=== PATIENT | male | born 1955 | race Hispanic/Latino ===

== ENCOUNTER → 2019-07-02 | Outpatient (CLI) | payer BC ==
[~2019-07-02] MED LIST: ASPI-1181 PO; CETI10TA57 PO; DICL100G31 TP; DILT180C63 PO; FURO40TA7 PO; OMEP40CA13 PO; TAMS-1 PO; VALS320T16 PO
== END | disposition home or self-care (01) ==
LOC: SHCH 07:59
PROVIDERS: ATTEND Internal Medicine Cardiovascular Disease
DX: I25.5 Ischemic cardiomyopathy (principal); R94.39 Abnormal result of other cardiovascular function study; I50.40 Unspecified combined systolic (congestive) and diastolic (congestive) heart failure
CPT/HCPCS: 78481; A9512

== ENCOUNTER 2022-01-06 22:09 | Inpatient (IN) | payer BC, MEDICARE ==
[~2022-01-06] VITALS: Ht 177.8 cm; Wt 149.7 kg
[~2022-01-06 22:09] MED LIST changes: -ASPI-1181 PO; +ASPI-1443 PO; -OMEP40CA13 PO; +OMEP40CA21 PO
[2022-01-06] MEDS ORDERED: ASPIRIN 81MG CHEW TAB PO ONE (22:30)
[2022-01-06] MEDS ORDERED: NITROGLYCERIN 1GM OINT 1 INCH/1GM TD ONE (22:30)
[2022-01-06 23:08] LABS: CREATININE 0.9 mg/dL (0.5-1.5); INR 0.93 (0.85-1.15); POTASSIUM 4.9 mmol/L (3.5-5.1); PROTHROMBIN TIME 9.8 SEC (9.6-11.6)
[2022-01-06 23:10] LABS: PARTIAL THROMBOPLASTIN TIME 23.2 SEC (26.3-35.5)
[2022-01-06 23:13] LABS: ALBUMIN 3.7 g/dL (3.5-5.0); BASOPHILS % (AUTO) 0.2 % (0.0-5.0); BILIRUBIN,TOTAL 0.8 mg/dL (0.2-1.0); LYMPHOCYTES % (AUTO) 10.9 % (21.0-51.0); MEAN CORPUSCULAR HEMOGLOBIN 30.7 pg (27.0-33.0); MEAN CORPUSCULAR HGB CONC 33.8 g/dL (32.0-36.0); MONOCYTES % (AUTO) 4.5 % (3.0-13.0); NEUTROPHILS % (AUTO) 82.2 % (40.0-77.0); PLATELET COUNT (AUTO) 91 K/uL (130-400); RED CELL DISTRIBUTION WIDTH 12.8 % (11.0-15.5); TOTAL PROTEIN, SERUM 7.7 g/dL (6.0-8.3)
[2022-01-06 23:18] LABS: HEMATOCRIT 61.9 % (42-54)
[2022-01-06] MEDS ORDERED: IOHEXOL 350 MG/ML 100ML INFUS..BTL IV ONE (23:52)
[2022-01-07] MEDS ORDERED: 0.9%NACL 1000ML 1,000 ML IV ONE
[2022-01-07] MEDS ORDERED: ACETAMINOPHEN 325 MG TAB PO PRN (01:00)
[2022-01-07] MEDS ORDERED: IPRATROPIUM/ALBUTEROL SULFATE 3 ML SOLUTION IH PRN (01:00)
[2022-01-07] MEDS ORDERED: LACTATED RINGERS 1000ML 1,000 ML IV SCH (01:00)
[2022-01-07] MEDS ORDERED: DiphenhydrAMINE HCL 50 MG/ML VIAL IV PRN (01:00)
[2022-01-07] MEDS ORDERED: ONDANSETRON 4MG INJ IV PRN (01:00)
[2022-01-07] MEDS ORDERED: HYDRALAZINE 20MG/ML VIAL IV PRN (01:00)
[2022-01-07] MEDS ORDERED: ENOXAPARIN SODIUM 1 MG/KG SQ SCH (01:00)
[2022-01-07 01:07] LABS: APPEARANCE,URINE Clear (CLEAR); BILIRUBIN,URINE Negative (NEGATIVE); COLOR,URINE Yellow (YELLOW); GLUCOSE, URINE (UA) Negative (NEGATIVE); KETONES,URINE Trace mg/dL (NEGATIVE); LEUKOCYTE ESTERASE ,URINE Negative (NEGATIVE); NITRATE,URINE Negative (NEGATIVE); OCCULT BLOOD,URINE Negative (NEGATIVE); PROTEIN,URINE Trace mg/dL (NEGATIVE)
[2022-01-07 01:24] LABS: BACTERIA,URINE None Seen /HPF (None Seen); RBC,URINE 0-1 /HPF (0-1); SQUAMOUS EPITHELIAL CELL,UR Few /HPF (0-2); WBC,URINE 0-1 /HPF (0-1)
[2022-01-07] MEDS ORDERED: ENOXAPARIN SODIUM 80 MG/0.8 ML SQ ONE (01:30)
[2022-01-07 01:35] LABS: BILIRUBIN,DIRECT 0.1 mg/dL (0.0-0.3); CRP QUANTITATIVE 1.4 mg/L (0.00-9.0)
[2022-01-07 02:18] LABS: ERYTHROCYTE SEDIMENTATION RATE 15 MM/HR (0-20)
[2022-01-07 03:00] LABS: % IRON SATURATION 20.9 % (30-44)
[2022-01-07 03:30] VITALS: BP 146/71
[2022-01-07 06:16] LABS: EOSINOPHILS % (AUTO) 2.1 % (0.0-8.0); HEMATOCRIT 42.5 % (42-54); LYMPHOCYTES % (AUTO) 9.7 % (21.0-51.0); MEAN CORPUSCULAR HEMOGLOBIN 30.6 pg (27.0-33.0); MEAN CORPUSCULAR HGB CONC 32.9 g/dL (32.0-36.0); MEAN CORPUSCULAR VOLUME 92.8 fL (79-99); MONOCYTES % (AUTO) 7.4 % (3.0-13.0); NEUTROPHILS % (AUTO) 80.5 % (40.0-77.0); PLATELET COUNT (AUTO) 169 K/uL (130-400); RED BLOOD CELL COUNT(AUTO) 4.58 MIL/uL (4.50-6.20); RED CELL DISTRIBUTION WIDTH 12.7 % (11.0-15.5); WHITE BLOOD COUNT (AUTO) 6.3 K/uL (4.8-10.8)
[2022-01-07 07:30] VITALS: BP 97/38
[2022-01-07] MEDS: FAMOTIDINE 20MG VIAL IV SCH ×2 (08:23→21:22)
[2022-01-07] MEDS ORDERED: ERGO500093 PO (09:44)
[2022-01-07] MEDS ORDERED: METO25TA6 PO (09:44)
[2022-01-07] MEDS ORDERED: OMEP40CA21 PO (09:44)
[2022-01-07] MEDS ORDERED: TAMS-1 PO (09:44)
[2022-01-07] MEDS ORDERED: EPLE25TA PO (09:44)
[2022-01-07] MEDS ORDERED: LISI2.5T13 PO (09:44)
[2022-01-07] MEDS ORDERED: ATOR40TA69 PO (09:44)
[2022-01-07] MEDS ORDERED: UMEC1DIS IH (09:45)
[2022-01-07] MEDS: PANTOPRAZOLE 40 MG TAB DR PO SCH (10:50)
[2022-01-07] MEDS: ***HM*** (Umeclidinium Brm/Vilanterol Tr (Anoro Ellipta 62.5-25 Mcg IH SCH (11:22)
[2022-01-07 11:50] VITALS: BP 110/44
[2022-01-07 20:17] VITALS: BP 122/61
[2022-01-07] MEDS: TAMSULOSIN HCL 0.4 MG CAP.ER.24H PO SCH (21:21)
[2022-01-07] MEDS: ATORVASTATIN 40 MG TABLET PO SCH (21:22)
[2022-01-07] MEDS: ASPIRIN 81 MG EC TAB PO SCH (21:22)
[2022-01-07 23:40] VITALS: BP 130/38
[2022-01-08 03:41] VITALS: BP 116/49
[2022-01-08 06:54] LABS: BASOPHILS % (AUTO) 0.3 % (0.0-5.0); EOSINOPHILS % (AUTO) 2.8 % (0.0-8.0); HEMATOCRIT 37.9 % (42-54); LYMPHOCYTES % (AUTO) 28.4 % (21.0-51.0); MEAN CORPUSCULAR HEMOGLOBIN 29.8 pg (27.0-33.0); MEAN CORPUSCULAR HGB CONC 32.2 g/dL (32.0-36.0); MEAN CORPUSCULAR VOLUME 92.7 fL (79-99); MONOCYTES % (AUTO) 15.3 % (3.0-13.0); NEUTROPHILS % (AUTO) 52.9 % (40.0-77.0); PLATELET COUNT (AUTO) 141 K/uL (130-400); RED BLOOD CELL COUNT(AUTO) 4.09 MIL/uL (4.50-6.20); RED CELL DISTRIBUTION WIDTH 12.6 % (11.0-15.5); WHITE BLOOD COUNT (AUTO) 3.6 K/uL (4.8-10.8)
[2022-01-08 07:13] LABS: POTASSIUM 4.3 mmol/L (3.5-5.1)
[2022-01-08 08:00] VITALS: BP 130/82
[2022-01-08] MEDS: ***HM*** (Umeclidinium Brm/Vilanterol Tr (Anoro Ellipta 62.5-25 Mcg IH SCH (09:00)
[2022-01-08] MEDS ORDERED: ASPIRIN 81MG CHEW TAB PO SCH (09:00)
[2022-01-08] MEDS: METOPROLOL TARTRATE 25 MG TAB PO SCH (09:17)
[2022-01-08] MEDS: FAMOTIDINE 20MG VIAL IV SCH ×2 (09:18→21:37)
[2022-01-08] MEDS: PANTOPRAZOLE 40 MG TAB DR PO SCH (09:18)
[2022-01-08] MEDS: LISINOPRIL 2.5 MG TABLET PO SCH (09:18)
[2022-01-08] MEDS: FUROSEMIDE 40 MG TABLET PO SCH (09:18)
[2022-01-08] MEDS: EPLERENONE 25 MG PO SCH (09:22)
[2022-01-08 11:45] LABS: BASOPHILS % (AUTO) 0.3 % (0.0-5.0); EOSINOPHILS % (AUTO) 3.1 % (0.0-8.0); HEMATOCRIT 39.7 % (42-54); LYMPHOCYTES % (AUTO) 28.6 % (21.0-51.0); MEAN CORPUSCULAR HEMOGLOBIN 30.7 pg (27.0-33.0); MEAN CORPUSCULAR VOLUME 90.2 fL (79-99); MONOCYTES % (AUTO) 17.1 % (3.0-13.0); NEUTROPHILS % (AUTO) 50.6 % (40.0-77.0); PLATELET COUNT (AUTO) 159 K/uL (130-400); RED CELL DISTRIBUTION WIDTH 12.6 % (11.0-15.5); WHITE BLOOD COUNT (AUTO) 3.2 K/uL (4.8-10.8)
[2022-01-08 12:00] VITALS: BP 122/82
[2022-01-08 16:00] VITALS: BP 139/58
[2022-01-08 20:29] VITALS: BP 153/70
[2022-01-08] MEDS: ASPIRIN 81 MG EC TAB PO SCH (21:36)
[2022-01-08] MEDS: ATORVASTATIN 40 MG TABLET PO SCH (21:36)
[2022-01-08] MEDS: TAMSULOSIN HCL 0.4 MG CAP.ER.24H PO SCH (21:37)
[2022-01-08] MEDS: HEPARIN 5,000 UNIT VIAL SQ SCH (23:20)
[2022-01-08 23:28] VITALS: BP 139/71
[2022-01-09 03:45] VITALS: BP 128/64
[2022-01-09 06:24] LABS: BASOPHILS % (AUTO) 0.5 % (0.0-5.0); EOSINOPHILS % (AUTO) 4.1 % (0.0-8.0); HEMATOCRIT 40.3 % (42-54); LYMPHOCYTES % (AUTO) 34.6 % (21.0-51.0); MEAN CORPUSCULAR HEMOGLOBIN 29.8 pg (27.0-33.0); MEAN CORPUSCULAR VOLUME 90.4 fL (79-99); NEUTROPHILS % (AUTO) 45.6 % (40.0-77.0); PLATELET COUNT (AUTO) 166 K/uL (130-400); RED BLOOD CELL COUNT(AUTO) 4.46 MIL/uL (4.50-6.20); RED CELL DISTRIBUTION WIDTH 12.4 % (11.0-15.5); WHITE BLOOD COUNT (AUTO) 4.1 K/uL (4.8-10.8)
[2022-01-09 06:37] LABS: CREATININE 0.9 mg/dL (0.5-1.5)
[2022-01-09 08:00] VITALS: BP 120/56
[2022-01-09] MEDS: LISINOPRIL 2.5 MG TABLET PO SCH (08:40)
[2022-01-09] MEDS: PANTOPRAZOLE 40 MG TAB DR PO SCH (08:40)
[2022-01-09] MEDS: METOPROLOL TARTRATE 25 MG TAB PO SCH (08:40)
[2022-01-09] MEDS: FUROSEMIDE 40 MG TABLET PO SCH (08:40)
[2022-01-09] MEDS: FAMOTIDINE 20MG VIAL IV SCH (08:40)
[2022-01-09] MEDS: HEPARIN 5,000 UNIT VIAL SQ SCH (08:41)
[2022-01-09] MEDS: EPLERENONE 25 MG PO SCH (08:42)
[2022-01-09] MEDS: ***HM*** (Umeclidinium Brm/Vilanterol Tr (Anoro Ellipta 62.5-25 Mcg IH SCH (08:42)
[2022-01-09 13:39] VITALS: BP 128/75
== END 2022-01-09 16:34 | disposition home or self-care (01) | DRG 313 ==
LOC: EDH 22:09 → EDHIP 01-07 00:50 → 4CH 01-07 03:19
PROVIDERS: ADMIT Internal Medicine; ATTEND Internal Medicine
DX: R07.89 Other chest pain (principal); I11.0 Hypertensive heart disease with heart failure; E78.5 Hyperlipidemia, unspecified; N40.0 Benign prostatic hyperplasia without lower urinary tract symptoms; D69.6 Thrombocytopenia, unspecified; G47.33 Obstructive sleep apnea (adult) (pediatric); K21.9 Gastro-esophageal reflux disease without esophagitis; I50.9 Heart failure, unspecified; I25.10 Atherosclerotic heart disease of native coronary artery without angina pectoris; Z95.1 Presence of aortocoronary bypass graft; Z83.3 Family history of diabetes mellitus; Z82.49 Family history of ischemic heart disease and other diseases of the circulatory system; Z82.3 Family history of stroke
CPT/HCPCS: 36415; 71045; 71250; 78582; 80048; 80053; 81001; 82248; 82550; 82668; 82728; 83540; 83550; 83880; 84443; 84484; 85025; 85378; 85610; 85651; 85730; 86140; 93005; 93306; 93970; 94660; 94664; A9540; A9558; G0378; J1644; J1650; J2405; J3490; J7120; Q9967

== ENCOUNTER → 2022-04-29 | Outpatient (CLI) | payer BC, MEDICARE ==
[~2022-04-29] MED LIST changes: +ATOR40TA69 PO; -DICL100G31 TP; -DILT180C63 PO; +EPLE25TA PO; +ERGO500093 PO; +LISI2.5T13 PO; +METO25TA6 PO; +UMEC1DIS IH; -VALS320T16 PO
[2022-04-29 12:42] LABS: BASOPHILS % (AUTO) 0.3 % (0.0-5.0); EOSINOPHILS % (AUTO) 3.3 % (0.0-8.0); HEMATOCRIT 41.9 % (42-54); LYMPHOCYTES % (AUTO) 29.1 % (21.0-51.0); MEAN CORPUSCULAR HEMOGLOBIN 30.7 pg (27.0-33.0); MEAN CORPUSCULAR HGB CONC 33.2 g/dL (32.0-36.0); MEAN CORPUSCULAR VOLUME 92.5 fL (79-99); MONOCYTES % (AUTO) 10.5 % (3.0-13.0); NEUTROPHILS % (AUTO) 56.5 % (40.0-77.0); PLATELET COUNT (AUTO) 214 K/uL (130-400); RED BLOOD CELL COUNT(AUTO) 4.53 MIL/uL (4.50-6.20); RED CELL DISTRIBUTION WIDTH 13.2 % (11.0-15.5); WHITE BLOOD COUNT (AUTO) 5.7 K/uL (4.8-10.8)
[2022-04-29 13:03] LABS: ALBUMIN 3.3 g/dL (3.5-5.0); CREATININE 1.1 mg/dL (0.5-1.5); MAGNESIUM 1.7 mg/dL (1.80-2.40); POTASSIUM 4.3 mmol/L (3.5-5.1); TOTAL PROTEIN, SERUM 7.3 g/dL (6.0-8.3)
[2022-04-29 13:23] LABS: B-TYPE NATRIURETIC PEPTIDE 107 pg/mL (0-100)
== END | disposition home or self-care (01) ==
LOC: LAB 08:19
PROVIDERS: ATTEND Internal Medicine Cardiovascular Disease
DX: I47.2 Ventricular tachycardia (principal); I50.22 Chronic systolic (congestive) heart failure; R06.00 Dyspnea, unspecified
CPT/HCPCS: 36415; 80053; 80061; 83735; 83880; 85025

== ENCOUNTER → 2022-11-11 | Outpatient (CLI) | payer MEDICARE ==
[2022-11-11 16:23] LABS: BASOPHILS % (AUTO) 0.2 % (0.0-5.0); EOSINOPHILS % (AUTO) 2.8 % (0.0-8.0); HEMATOCRIT 40.1 % (42-54); LYMPHOCYTES % (AUTO) 28.3 % (21.0-51.0); MEAN CORPUSCULAR HGB CONC 32.9 g/dL (32.0-36.0); MEAN CORPUSCULAR VOLUME 94.1 fL (79-99); MONOCYTES % (AUTO) 10.7 % (3.0-13.0); NEUTROPHILS % (AUTO) 57.8 % (40.0-77.0); PLATELET COUNT (AUTO) 184 K/uL (130-400); RED BLOOD CELL COUNT(AUTO) 4.26 MIL/uL (4.50-6.20); RED CELL DISTRIBUTION WIDTH 13.6 % (11.0-15.5); WHITE BLOOD COUNT (AUTO) 5.3 K/uL (4.8-10.8)
[2022-11-11 17:15] LABS: ALBUMIN 3.3 g/dL (3.5-5.0); POTASSIUM 4.3 mmol/L (3.5-5.1); TOTAL PROTEIN, SERUM 7.2 g/dL (6.0-8.3)
== END | disposition home or self-care (01) ==
LOC: LAB 11:00
PROVIDERS: ATTEND Internal Medicine Cardiovascular Disease
DX: I50.22 Chronic systolic (congestive) heart failure (principal)
CPT/HCPCS: 36415; 80053; 80061; 85025

== ENCOUNTER → 2023-04-22 | Outpatient (CLI) | payer MEDICARE ==
[2023-04-22 12:13] LABS: BASOPHILS # (AUTO) 0.02 K/uL (0.00-0.20); BASOPHILS % (AUTO) 0.4 % (0.0-5.0); EOSINOPHILS # (AUTO) 0.13 K/uL (0.00-0.70); EOSINOPHILS % (AUTO) 2.3 % (0.0-8.0); HEMATOCRIT 41.3 % (42-54); IMMATURE GRANULOCYTE ABSOLUTE 0.01 K/uL (0-1); LYMPHOCYTES # (AUTO) 1.4 K/uL (1.0-4.8); LYMPHOCYTES % (AUTO) 25.1 % (21.0-51.0); MEAN CORPUSCULAR HEMOGLOBIN 30.9 pg (27.0-33.0); MEAN CORPUSCULAR HGB CONC 33.7 g/dL (32.0-36.0); MEAN CORPUSCULAR VOLUME 91.8 fL (79-99); MONOCYTES # (AUTO) 0.5 K/uL (0.1-1.0); MONOCYTES % (AUTO) 8.9 % (3.0-13.0); NEUTROPHILS # (AUTO) 3.6 K/uL (1.8-7.7); NEUTROPHILS % (AUTO) 63.1 % (40.0-77.0); PLATELET COUNT (AUTO) 196 K/uL (130-400); RED CELL DISTRIBUTION WIDTH 12.7 % (11.0-15.5); WHITE BLOOD COUNT (AUTO) 5.6 K/uL (4.8-10.8)
[2023-04-22 12:32] LABS: ALBUMIN 3.4 g/dL (3.5-5.0); BILIRUBIN,TOTAL 0.7 mg/dL (0.2-1.0); CREATININE 0.9 mg/dL (0.5-1.5); TOTAL PROTEIN, SERUM 7.6 g/dL (6.0-8.3)
== END | disposition home or self-care (01) ==
LOC: LAB 10:40
PROVIDERS: ATTEND Internal Medicine Cardiovascular Disease
DX: I25.810 Atherosclerosis of coronary artery bypass graft(s) without angina pectoris (principal); I10 Essential (primary) hypertension
CPT/HCPCS: 36415; 80053; 80061; 85025

== ENCOUNTER → 2023-05-26 | Outpatient (CLI) | payer MEDICARE | END | disposition home or self-care (01) | LOC: RAH 08:11 | PROVIDERS: ATTEND Urology | DX: N28.1 Cyst of kidney, acquired (principal); R31.29 Other microscopic hematuria | CPT/HCPCS: 76770 ==

== ENCOUNTER → 2024-01-27 | Outpatient (CLI) | payer MEDICARE ==
[2024-01-27 12:34] LABS: POTASSIUM 3.7 mmol/L (3.5-5.1)
== END | disposition home or self-care (01) ==
LOC: LAB 09:49
PROVIDERS: ATTEND Internal Medicine Cardiovascular Disease
DX: I50.22 Chronic systolic (congestive) heart failure (principal)
CPT/HCPCS: 36415; 80048

== ENCOUNTER → 2024-02-10 | Outpatient (CLI) | payer MEDICARE ==
[2024-02-10 12:25] LABS: CREATININE 0.9 mg/dL (0.5-1.3)
== END | disposition home or self-care (01) ==
LOC: LAB 10:44
PROVIDERS: ATTEND Internal Medicine Cardiovascular Disease
DX: I25.2 Old myocardial infarction (principal); I50.22 Chronic systolic (congestive) heart failure; G47.33 Obstructive sleep apnea (adult) (pediatric)
CPT/HCPCS: 36415; 80048

== ENCOUNTER 2024-02-20 11:49 | Emergency (ER) | payer MEDICARE ==
[~2024-02-20] VITALS: Ht 177.8 cm; Wt 148.8 kg
[2024-02-20 12:32] LABS: BASOPHILS # (AUTO) 0.01 K/uL (0.00-0.20); BASOPHILS % (AUTO) 0.1 % (0.0-5.0); EOSINOPHILS # (AUTO) 0.08 K/uL (0.00-0.70); EOSINOPHILS % (AUTO) 1.2 % (0.0-8.0); HEMATOCRIT 39.2 % (42-54); IMMATURE GRANULOCYTE ABSOLUTE 0.01 K/uL (0-1); LYMPHOCYTES # (AUTO) 1.2 K/uL (1.0-4.8); LYMPHOCYTES % (AUTO) 18.2 % (21.0-51.0); MEAN CORPUSCULAR HEMOGLOBIN 31.1 pg (27.0-33.0); MEAN CORPUSCULAR HGB CONC 33.7 g/dL (32.0-36.0); MEAN CORPUSCULAR VOLUME 92.5 fL (79-99); MONOCYTES # (AUTO) 0.5 K/uL (0.1-1.0); NEUTROPHILS % (AUTO) 73.4 % (40.0-77.0); PLATELET COUNT (AUTO) 183 K/uL (130-400); RED BLOOD CELL COUNT(AUTO) 4.24 MIL/uL (4.50-6.20); RED CELL DISTRIBUTION WIDTH 12.6 % (11.0-15.5); WHITE BLOOD COUNT (AUTO) 6.8 K/uL (4.8-10.8)
[2024-02-20 12:51] LABS: CREATININE 1.2 mg/dL (0.5-1.3)
[2024-02-20 12:55] LABS: ALBUMIN 3.3 g/dL (3.5-5.0); BILIRUBIN,DIRECT 0.2 mg/dL (0.0-0.3); BILIRUBIN,TOTAL 0.6 mg/dL (0.2-1.0); TOTAL PROTEIN, SERUM 7.2 g/dL (6.0-8.3)
[2024-02-20] MEDS: MORPHINE 4 MG SYG IVP ONE (13:51)
[2024-02-20] MEDS: ONDANSETRON 4MG INJ IVP ONE (13:51)
[2024-02-20] MEDS: KETOROLAC 15MG/ML VIAL (15MG/ML) IV ONE (13:52)
[2024-02-20 14:27] LABS: APPEARANCE,URINE CLEAR (CLEAR); BILIRUBIN,URINE NEGATIVE (NEGATIVE); COLOR,URINE LIGHT-YELLOW (YELLOW); GLUCOSE, URINE (UA) >=1000 mg/dL (NEGATIVE); KETONES,URINE NEGATIVE (NEGATIVE); LEUKOCYTE ESTERASE ,URINE NEGATIVE Leu/uL (NEGATIVE); NITRATE,URINE NEGATIVE (NEGATIVE); OCCULT BLOOD,URINE MODERATE (NEGATIVE); PROTEIN,URINE NEGATIVE (NEGATIVE); UROBILINOGEN,URINE 0.2 mg/dL (0.2-1.0)
[2024-02-20 14:32] LABS: ADD UA MICROSCOPIC YES
[2024-02-20 14:35] LABS: BACTERIA,URINE RARE /HPF (None Seen); MUCUS,URINE RARE LPF (None Seen); SQUAMOUS EPITHELIAL CELL,UR RARE /HPF (0-2)
[2024-02-20 16:20] VITALS: BP 124/72; PULSE 80; RESP 20; O2SAT 96
[2024-02-20] MEDS ORDERED: NAPR-1196 PO (16:20)
== END 2024-02-20 16:31 | disposition home or self-care (01) ==
LOC: EDH 11:49
DX: R10.32 Left lower quadrant pain (principal); R31.9 Hematuria, unspecified; I10 Essential (primary) hypertension; Z79.82 Long term (current) use of aspirin; Z79.899 Other long term (current) drug therapy; Z95.1 Presence of aortocoronary bypass graft
CPT/HCPCS: 99285; 74176; 96374; 96375; 80076; 84484; 80048; 83690; 85025; 81001; 36415; 93005; J2405; J2270; J1885

== ENCOUNTER → 2024-09-14 | Outpatient (CLI) | payer MEDICARE ==
[~2024-09-14] MED LIST changes: +NAPR-1196 PO
[2024-09-14 12:22] LABS: ALBUMIN 3.3 g/dL (3.5-5.0); BILIRUBIN,TOTAL 0.6 mg/dL (0.2-1.0); POTASSIUM 4.5 mmol/L (3.5-5.1); TOTAL PROTEIN, SERUM 7.7 g/dL (6.0-8.3)
== END | disposition home or self-care (01) ==
LOC: LAB 09:45
PROVIDERS: ATTEND Internal Medicine Cardiovascular Disease
DX: I11.0 Hypertensive heart disease with heart failure (principal); I50.32 Chronic diastolic (congestive) heart failure; I25.810 Atherosclerosis of coronary artery bypass graft(s) without angina pectoris
CPT/HCPCS: 36415; 80053; 80061

== ENCOUNTER → 2025-04-21 | Outpatient (CLI) | payer MEDICARE ==
[~2025-04-21] MED LIST changes: -TAMS-1 PO; +TAMS-55 PO
--- NOTE | 2025-04-22 06:52 | HMCIMG ---
EXAM: CR Lumbar Spine, 4 views. CLINICAL HISTORY: Spinal stenosis. COMPARISON: None provided. FINDINGS: Lumbar alignment is within normal limits. Multilevel anterior osteophytes. Moderate reduction in L4-L5 and L5-S1 intervertebral disc heights. Mild reduction in L2-L3 and L3-L4 intervertebral disc heights. Normal vertebral body heights. No acute fracture. Soft tissues are within normal limits. IMPRESSION: 1. No acute bony changes. 2. Moderate lower lumbar spondylosis. /[place]
== END | disposition home or self-care (01) ==
LOC: RAH 13:35
PROVIDERS: ATTEND Physical Medicine & Rehabilitation
DX: M47.816 Spondylosis without myelopathy or radiculopathy, lumbar region (principal); M48.062 Spinal stenosis, lumbar region with neurogenic claudication; M54.50 Low back pain, unspecified; R20.2 Paresthesia of skin
CPT/HCPCS: 72114

== ENCOUNTER → 2025-04-26 | Outpatient (CLI) | payer MEDICARE ==
--- NOTE | 2025-04-27 11:48 | HMCIMG ---
EXAM: MR Lumbar Spine Without Intravenous Contrast. CLINICAL HISTORY: Spinal canal stenosis. Lumbar region pain with neurogenic claudication. TECHNIQUE: Magnetic resonance images of the lumbar spine in multiple planes. CONTRAST: None. COMPARISON: Prior lumbar spine radiograph dated for April 2025. FINDINGS: For this examination, spinal levels were labeled assuming five non-rib bearing, lumbar-type vertebrae with the inferior labeled L5. No acute fracture. Normal lordotic curvature. Normal vertebral body height and marrow signal intensity. Multilevel disc desiccation and degenerative reduction in disc space from L1-L2, through L4-L5 level with disc desiccation and multilevel disc bulges. Multilevel degenerative facet arthropathy. Conus medullaris terminates at the T12-L1 level. No abnormal epidural masses. The surrounding soft tissues are unremarkable. Individual spinal levels are described as follows: T12-L1: Mild disc desiccation with degenerative lateral syndesmophyte. Minimal 2.5 mm disc bulge with mild bilateral facet arthropathy and ligamentum flavum hypertrophy. No significant lateral recess, neural foraminal narrowing or spinal canal stenosis. L1-L2: Mild disc desiccation. Broad-based circumferential 3.5 mm disc bulge. Moderate bilateral facet arthropathy. Mild narrowing of the bilateral lateral recesses. No significant neural foraminal narrowing or nerve impingement. No spinal canal stenosis. L2-L3: Mild disc desiccation. Broad-based circumferential 4 mm disc bulge. Mild bilateral facet arthropathy and ligamentum flavum hypertrophy. Moderate narrowing of the bilateral lateral recesses. Mild spinal canal stenosis. L3-L4: Mild disc desiccation, broad-based circumferential 4 mm disc bulge. Moderate bilateral facet arthropathy and ligamentum flavum hypertrophy. Mild narrowing of the right neural foramina and moderate narrowing of the bilateral lateral recesses. Mild spinal canal stenosis. L4-L5: Disc desiccation with broad-based circumferential 4 mm disc bulge. Moderate bilateral facet arthropathy and ligamentum flavum hypertrophy. Moderate spinal canal stenosis. Mild narrowing of the left neural foramina and moderate narrowing of the bilateral lateral recesses. Abutment of the left exiting L4 and bilateral traversing L5 nerve root. Moderate spinal canal stenosis. L5-S1: Mild disc desiccation. Broad-based circumferential 5 mm disc bulge with a greater left-sided component. Moderate bilateral facet arthropathy. Moderate narrowing of the left neural foramina and mild narrowing of the right neural foramina. Moderate narrowing of the bilateral lateral recess. Abutment of bilateral exiting L5 nerve root, left more than right, and moderate narrowing of the bilateral lateral recesses. Abutment of bilateral traversing S1 nerve root. A 3.2 cm cortical cyst from the left kidney upper pole and left renal parapelvic cysts are identified. IMPRESSION: Normal vertebral body height and marrow signal intensity. Multilevel disc desiccation and degenerative reduction in disc space from L1-L2, through L4-L5 level, with disc desiccation and multilevel disc bulges. Multilevel degenerative facet arthropathy. Multilevel degenerative lateral syndesmophyte from T12-L1, through L4-L5 level. Moderate degenerative changes in the lumbar spine, most prominent at the L4-L5 level. Moderate spinal canal stenosis. Compared to the prior study, redemonstrated multilevel degenerative changes in the lumbar spine with severe facet arthropathy at L3-L4, L4-L5, and L5-S1 levels. /[place]
== END | disposition home or self-care (01) ==
LOC: RAH 09:22
PROVIDERS: ATTEND Physical Medicine & Rehabilitation
DX: M47.817 Spondylosis without myelopathy or radiculopathy, lumbosacral region (principal); M48.07 Spinal stenosis, lumbosacral region; M51.35 Other intervertebral disc degeneration, thoracolumbar region; M51.372 Other intervertebral disc degeneration, lumbosacral region with discogenic back pain and lower extremity pain; M48.062 Spinal stenosis, lumbar region with neurogenic claudication; R29.898 Other symptoms and signs involving the musculoskeletal system
CPT/HCPCS: 72148

== ENCOUNTER → 2025-08-09 | Outpatient (CLI) | payer MEDICARE ==
--- NOTE | 2025-08-12 10:42 | HMCIMG ---
CLINICAL INDICATION: Age-related osteoporosis without current pathological fracture. COMPARISON: None available TECHNIQUE: Bone densitometry is performed of the lumbar spine and left hip. FINDINGS: Total BMD of lumbar spine is 1.720 g/cm2 with a T-score of 5.7 and Z-score is 6.6. Total BMD of left hip is 1.157 g/cm2 with a T-score of 0.8 and Z-score is 1.5. FRAX SCORE: The 10 year fracture risk for a major osteoporotic fracture and hip fracture not provided T score at or above -1.0 IMPRESSION: 1. Normal lumbar spine and left hip 2. I would recommend follow-up in 12 months. World Health Organization criteria for BMD interpretation classify patients as Normal (T-score at or above -1.0), Osteopenic (T-score between -1.0 and -2.5), or Osteoporotic (T-score at or below -2.5). FRAX SCORE: A. All treatment decisions require clinical judgment and consideration of individual patient factors, including patient preferences, comorbidities, previous drug use, risk factors not captured in the FRAX model (e.g., frailty, falls, vitamin D deficiency, increased bone turnover, interval significant decline in bone density) and possible [id number]-estimation of fracture risk by FRAX. B. In addition, the NOF Guide recommends that FDA-approved medical therapies be considered in postmenopausal women and men age greater than or equal to 50 years with a: i. Hip or vertebral (clinical or morphometric) fracture. ii. T-score of less than or equal to -2.5 at the spine or hip. iii. Ten-year fracture probability by FRAX of greater than or equal to 3% for hip fracture of greater than or equal to 20% for major osteoporotic fracture.
== END | disposition home or self-care (01) ==
LOC: RAH 09:18
PROVIDERS: ATTEND Neurological Surgery
DX: M81.0 Age-related osteoporosis without current pathological fracture (principal)
CPT/HCPCS: 77080